=== PATIENT | male | born 1980 | race American Indian/Alaskan Native ===

== ENCOUNTER 2024-02-10 11:42 | Emergency (ER) | payer BC, SELFPAY ==
[2024-02-10 11:53] VITALS: BP 162/89
[2024-02-10 12:21] LABS: % Basophils 0.6 % (0-2); % Eosinophils 1.7 % (0-6); % Immature Granulocytes 0.3 % (0-0.5); % Lymphocytes 21.3 % (20.5-51.1); % Neutrophils 70.1 % (42.2-75.2); Absolute Eosinophils 0.1 10^3/uL (0-0.7); Absolute Lymphocytes 1.5 10^3/uL (1.2-3.4); Absolute Monocytes 0.4 10^3/uL (0.1-0.6); Mean Corp Hgb Conc. 34.1 g/dL (33.0-37.0); Mean Corpuscular Hgb 28.7 pg (27.0-31.0); Mean Platelet Volume 8.5 fL (7.4-10.4); Nucleated Red Blood Cells % 0 % (-); Platelet Count 283 10^3/uL (130-400); Red Blood Cell Count 4.88 10^6/uL (4.70-6.10); Red Cell Dist. Width 12.7 % (11.5-14.5); White Blood Cell Count 7.1 10^3/uL (4.8-10.8)
[2024-02-10 12:31] LABS: Urine Albumin Negative (Neg - Trace); Urine Bilirubin Negative (Negative); Urine Character Clear (Clear); Urine Color Yellow; Urine Glucose Negative (Negative); Urine Ketone Negative (Negative); Urine Leukocyte 2+ (Negative); Urine Nitrite Negative (Negative); Urine Occult Blood 3+ (Negative); Urine Specific Gravity 1.015 (<1.030); Urine Urobilinogen Negative (Neg - 1+)
[2024-02-10 12:34] LABS: ALT (SGPT) 39 U/L (0-50); AST (SGOT) 29 U/L (17-59); Albumin 4.3 g/dl (3.5-5.0); Alkaline Phosphatase 78 U/L (38-126); Blood Urea Nitrogen 14 mg/dl (9-20); Calcium 9.5 mg/dl (8.4-10.2); Carbon Dioxide 24 mmol/L (22-30); Chloride 104 mmol/L (98-107); Glucose 122 mg/dl (70-99); Potassium 4.3 mmol/L (3.5-5.1); Sodium 139 mmol/L (135-145); Total Bilirubin 0.5 mg/dl (0.2-1.3); Total Protein 6.9 g/dl (6.3-8.2); eGFR > 60.00
[2024-02-10 12:41] LABS: Urine Bacteria Few (Negative); Urine Red Blood Cell 21-25 /HPF (0-2); Urine White Cell 70-80 /HPF (0-5)
--- NOTE | 2024-02-10 12:44 | ED.GENMED ---
History of Present Illness
General
Chief Complaint: Flank Pain
Source: patient
Exam Limitations: none
Time Seen by Provider: 02/10/24 12:40
History of Present Illness
History of Present Illness:
See MDM
Past History
Past History
ED Past Medical History: None
ED Past Surgical History: None
Social History
Tobacco: Non-smoker
Alcohol: None
Phy Exam
Physical Exam
Physical Exam:
See MDM
Course
Orders/Labs/Results
Orders:
Orders
02/10/24 12:02
Complete Blood Count/With Diff Urgent
Comprehensive Metabolic Panel Urgent
Urinalysis Reflex To Culture Urgent
Date Specimen was Collected: 02/10/24
Time Specimen was Collected: 11:55
Urine Microscopic Reflex Cult Urgent
Urine Culture Urgent
DELFINO Source: U
Specimen Description:
Date Specimen was Collected: 02/10/24
Time Specimen was Collected: 11:55
02/10/24 12:44
CT Abd/pel Without Iv Or Oral Urgent
Comment:
Reason For Exam: R flank pain
LevoFLOXacin [Levaquin] 500 mg PO NOW STA
02/10/24 13:36
Ketorolac [Toradol] 30 mg IM NOW STA
Abnormal Lab Results
02/10/24
12:02
Glucose 122 H mg/dl
(70-99)
Ur Occult Blood Reflex 3+ A
(Negative)
Leukocyte Esterase Rfl 2+ A
(Negative)
Urine RBC 21-25 A /HPF
(0-2)
Urine WBC (Reflex) 70-80 A /HPF
(0-5)
Urine Bacteria (Reflex) Few A
(Negative)
02/10/24 12:02
02/10/24 12:02
Vital Signs
Initial and Last Documented VS:
Initial Vital Signs
Temp Pulse Resp BP Pulse Ox
99.2 F 80 18 162/89 100
02/10/24 11:53 02/10/24 11:53 02/10/24 11:53 02/10/24 11:53 02/10/24 11:53
Last Documented Vital Signs
Temp Pulse Resp BP Pulse Ox
99.2 F 80 18 162/89 100
02/10/24 11:53 02/10/24 11:53 02/10/24 11:53 02/10/24 11:53 02/10/24 11:53
MDM/Problems Addressed
Differential Diagnosis Includes:
HPI and MDM Narrative:
43-year-old male presenting with right flank pain. Patient is concerned this could be a kidney stone. He had one several years back with similar symptoms. Patient is also concerned about possible UTI. He complains of painful urination with
malodorous smell. He was treated for UTI several weeks back. He finished a course of Macrobid. On exam, he is well-appearing and nontoxic. He has no significant flank tenderness on exam. No rash. Urine is concerning for infection. Will start
Levaquin with concern for complicated UTI versus pyelonephritis. Will obtain CT to look for evidence of kidney stone. Patient is otherwise well-appearing and nontoxic
Physical exam
General: Well appearing and non-toxic
HEENT: protecting airway
Neck: appears supple
CV: No evidence of cyanosis
Resp: No accessory muscle use
Abd: Non-distended. No significant right flank tenderness. No rash noted
Extremities: No deformities
Neuro: alert
Psych: Normal affect
Skin: Intact
Problems Addressed including Acute and Chronic Conditions affecting care:
1. Right flank pain
Acuity: acute
Prognosis: stable
Details: Will start Levaquin with concern for complicated UTI versus pyelonephritis. Will obtain CT to look for evidence of kidney stone
Updates
CT consistent with small obstructing stone. Patient is well-appearing nontoxic. Will start pain medicine and antibiotics and discussed strict return precautions
Differential Diagnosis (but not limited to): Kidney stone, pyelonephritis
Testing considered: Blood culture but he is afebrile
Drug therapy (if applicable): OTC meds, please see d/c instruction regarding Rx drugs
Amount and/or Complexity of Data Reviewed
Clinical info obtained from: Patient
External data reviewed: N/A
Labs I independently reviewed (but not limited to): White blood cell count normal
Radiology: The CT scan was personally and independently reviewed. In addition, official CT report reviewed.
Pulse Ox: not hypoxic
EKG independently reviewed: N/A
Founder Chairman And Chief Creative Officer: N/A
Critical Care: N/A
Risk of Complication:
Social Determinants of health: Good social support
Discussed with other providers: N/A
Escalation of Care includes Admit/Obs: After being observed in the Emergency Department, pt stable for discharge.
Occasional wrong word or 'sound a like' substitutions may have occurred due to the inherent limitations of voice recognition software. Read the chart carefully and recognize, using context, where substitutions have occurred.
*Critical Care Note
Total Time (30-74mins, 75-104mins- exclusive of procedures): Not Applicable
ED Attending Note
-
Portions of this chart may have been created with voice recognition software.� Occasional wrong word or��sound alike� substitutions may have occurred due to the inherent limitations of voice recognition software.
Discharge Plan
Departure
Patient Disposition: Home (Routine Discharge)
Date of Disposition: 02/10/24
Time of Disposition: 14:57
Patient with high blood pressure during this ER visit?: No
Discharge Problem:
Kidney stone on right side, Bacterial UTI
Instructions: Kidney Stones (DC), How to Strain Your Urine
Prescriptions:
New
tamsulosin [Flomax] 0.4 mg Capsule
0.4 mg PO DAILY Qty: 7 0RF
diclofenac potassium 50 mg tablet
50 mg PO BID Qty: 20 0RF
levofloxacin 500 mg Tablet
500 mg PO DAILY Qty: 6 0RF
ondansetron 4 mg Tablet,Disintegrating
4 mg PO BIDPRN PRN (Reason: nausea/vomiting) Qty: 10 0RF
oxycodone 5 mg tablet
5 mg PO Q8H PRN (Reason: Pain) Qty: 7 0RF
Referrals:
Gold Kahn MD [Active] -
NONE,* [Family Provider] -
Activity Restrictions/Additional Instructions:
Please return for any worsening symptoms.
You may return at any time if you have further concerns.
Please follow up with your doctor at the first available appointment, preferably this week.
Please make an appointment to see the urologist.
Thank you for choosing [facility].
Interventions
Interventions:
*Risk Screen - Suicide Last Done: 02/10/24 11:53
*General Assessment Last Done: 02/10/24 11:53
*Neglect/Abuse Screening Last Done: 02/10/24 11:53
ED- Fall Risk Assessment Last Done: 02/10/24 12:42
*ED COVID-19 Vaccine History Last Done: 02/10/24 11:53
LH-Jsjptb-Gzhwngliup Assessment Last Done: 02/10/24 12:50
ED-Male Genitourinary Assessment Last Done: 02/10/24 12:50
Discharge Date and Time
Print Language: SLOVAK
[2024-02-10] MEDS: LEVAQUIN 500 MG PO (12:47)
[2024-02-10 12:48] VITALS: BMI 27.1
[2024-02-10] MEDS: TORADOL 30 MG IM (13:39)
== END 2024-02-10 15:06 | disposition home or self-care (01) ==
LOC: EMR 11:42
PROVIDERS: Emergency Medicine; EMERGENCY PHYSICIAN Student in an Organized Health Care Education/Training Program
DX: N39.0 Urinary tract infection, site not specified (principal); N20.0 Calculus of kidney
CPT/HCPCS: 99284; 96372; 74176; 80053; 81003; 81015; 85025; 87086; 87088